=== PATIENT | male | born 1935 | race Caucasian/White ===

== ENCOUNTER → 2017-03-17 | Outpatient (CLI) | payer MEDICARE, BC ==
[~2017-03-17] VITALS: Ht 182.9 cm; Wt 86.6 kg
[~2017-03-17] MED LIST: ASPIRIN 81M81 MG/TA2 PO; ATIVAN 1MG T1 MG/TAB PO; MOBIC15 MG PO; PRINZIDE 12.5 M1 TA1 PO; TESTOSTERONE INJ; TOPROL XL 25MG25 MG PO; ZOCOR 40MG40 MG PO
[2017-03-17 12:43] VITALS: BP 181/92; PULSE 93
[2017-03-17 14:18] VITALS: BP 178/98; PULSE 102
== END ==
LOC: COL.RAD 12:29
DX: M54.16 Radiculopathy, lumbar region (principal); M48.06 Spinal stenosis, lumbar region
CPT/HCPCS: J3301